=== PATIENT | male | born 1940 | race Caucasian/White ===

== ENCOUNTER 2017-04-28 14:09 | Observation (INO) | payer MEDICARE ==
--- NOTE | 2017-04-28 14:39 | ERPHSYRPT ---
- History of Present Illness Time Seen by Provider: 04/28/17 14:28 Source: patient Exam Limitations: no limitations Patient Subjective Stated Complaint: PT STATES HE WOKE THIS MORNING AND HAD BREAKFAST WHEN HE SUDDENLY FELL TO THE FLOOR, REPORTS HE DID NOT LOOSE CONSCIOUSNESS, HE JUST LAID THERE ON THE FLOOR. STATES WHEN HIS HOME HEALTH NURSE ARRIVED SHE CALLED 911. DENIES STRIKING HIS HEAD DURING THE FALL. ESTIMATES HE WAS DOWN ON THE FLOOR APPROX 30 MINS. REPORTS HE LIVES ALONE. Triage Nursing Assessment: PT IS AOX3, PUPILS PERRL, HAND PRIVATE DUTY NURSE ARE STRONG AND EQUAL, PT MOVES ALL EXTREMITIES FREELY, RESPS ARE EASY AND NON LABORED, LUNG SOUNDS ARE CLEAR THROUGHOUT ALL SINGH, RADIAL PULSES ARE STRONG AND EQUAL, BOWEL SOUNDS ARE PRESENT AND NORMOACTIVE X4. NO OBVIOUS INJURIES NOTED, SKIN IS INTACT. PT DENIES ANY ACUTE PAIN. REPORTS CHRONIC PAIN TO THE BILAT FEET. Physician History: This 77-year-old white female with history of hypercholesterolemia, diabetes, high blood pressure, prostate problems, arthritis Patient is brought by medics. Patient states she chronically has a hard time walking he states he's been walking with shuffling gait for years He states that he was in [facility] for the same last week. He states that he was at home shuffling around and fell. He denies any loss of consciousness did not hit his head. He states his home health care called via medics. He states that his walking has not changed. He initially said for months and then said for years she is not having problems moving his extremities. Past medical history includes hypercholesterolemia, chronic foot pain, diabetes , high blood pressure, prostate problems, arthritis, gout, sleep disorder. Timing/Duration: other (chronic problems walking, fell to the floor this morning ) Severity: moderate Modifying Factors: Improves With: nothing Associated Symptoms: weakness, other (problems walking for years states walks with shuffling gait), No nausea, No vomiting, No abdominal pain, No shortness of breath, No heartburn, No diaphoresis, No cough, No chills, No chest pain, No fever, No headaches, No loss of appetite, No malaise, No rash, No syncope, No seizure Home Medications: Allopurinol 100 mg [Zyloprim 100 mg] 100 mg PO DAILY 04/28/17 [History] Atorvastatin Calcium [Lipitor 40Mg] 40 mg PO DAILY 04/28/17 [History] Clopidogrel Bisulfate 75 mg [PLAVIX 75 MG Tablet] 75 mg PO DAILY 04/28/17 [History] Fenofibrate [Lipofen] 145 mg PO HS 04/28/17 [History] Glipizide 2.5 mg [Glucotrol Xl 2.5 MG] 2.5 mg PO DAILY 04/28/17 [History] Latanoprost [Xalatan] 1 ml OP HS 04/28/17 [History] Lisinopril [Zestril] 30 mg PO DAILY 04/28/17 [History] Pregabalin [Lyrica 100Mg] 100 mg PO TID 04/28/17 [History] Sitagliptin Phosphate 50 MG [Januvia 50 MG] 100 mg PO DAILY 04/28/17 [ History] Tamsulosin HCl 0.4 mg [Flomax 0.4 MG] 0.4 mg PO BID 04/28/17 [History] Tramadol HCl 50 mg [Ultram 50 mg] 50 mg PO Q4H PRN PRN 04/28/17 [History] Zolpidem Tartrate 10 mg PO HS 04/28/17 [History] Hx Tetanus, Diphtheria Vaccination/Date Given: Yes Hx Influenza Vaccination/Date Given: Yes Hx Pneumococcal Vaccination/Date Given: Yes Immunizations Up to Date: Yes - Review of Systems Constitutional: No Fever, No Chills Eyes: No Symptoms Ears, Nose, & Throat: No Symptoms Respiratory: No Cough, No Dyspnea Cardiac: No Chest Pain, No Edema, No Syncope Abdominal/Gastrointestinal: No Abdominal Pain, No Nausea, No Vomiting, No Diarrhea Genitourinary Symptoms: No Dysuria Musculoskeletal: Fall (fell denies injury), Other (chronic feet pain) Skin: No Symptoms, No Rash Neurological: Gait Changes (patient states shuffling and trouble walking for years) Psychological: No Symptoms Endocrine: No Symptoms All Other Systems: Reviewed and Negative - Past Medical History Pertinent Past Medical History: Yes Cardiac History: High Cholesterol, Hypertension Endocrine Medical History: Diabetes Type II Musculoskeletal History: Arthritis Male Reproductive Disorders: Prostate Problems Other Medical History: GOUT, SLEEP DISORDER - Past Surgical History Past Surgical History: No - Social History Smoking Status: Never smoker Drug Use: none Patient Lives Alone: Yes - Nursing Vital Signs Nursing Vital Signs: Initial Vital Signs Temperature 98.3 F 04/28/17 14:11 Pulse Rate 83 04/28/17 14:11 Respiratory Rate 20 04/28/17 14:11 Blood Pressure 144/98 04/28/17 14:11 Pain Scale Pain Intensity 10 - Physical Exam General Appearance: no apparent distress, alert Eye Exam: PERRL/EOMI (review), eyes nml inspection Ears, Nose, Throat Exam: normal ENT inspection, TMs normal, pharynx normal, moist mucous membranes Neck Exam: normal inspection, non-tender, supple, full range of motion Respiratory Exam: normal breath sounds, lungs clear, No respiratory distress Cardiovascular Exam: regular rate/rhythm, normal heart sounds, normal peripheral pulses Gastrointestinal/Abdomen Exam: soft, normal bowel sounds, No tenderness, No mass Back Exam: normal inspection, normal range of motion, No CVA tenderness, No vertebral tenderness Extremity Exam: normal inspection, normal range of motion, pelvis stable Neurologic Exam: alert, oriented x 3, cooperative, pharmacy intake coordinator II-XII nml as tested, normal mood/affect, nml cerebellar function, nml station & gait, sensation nml, No motor deficits Skin Exam: normal color, warm, dry, No rash Lymphatic Exam: No adenopathy SpO2 Interpretation: normal (95%) - Course Nursing assessment & vital signs reviewed: Yes EKG Interpreted by Me: RATE (76 bpm), Other (EKG: Sinus rhythm 76 bpm axisQI/ SIII pattern, right bundle branch block left anterior fascicular block no acute ST or T wave changes noted, no old EKG for comparison) - CT Exams Head CT Interpretation: Discussed w/radiologist (head CT without contrast: Impression : 1. New finding for small old left basal ganglia infarct. 2. Stable atrophy , degenerative micro-ischemia, and small right periventricular infarct. 3. Right sphenoid sinus polyp) Ordered Tests: Active Orders 24 hr Category Date Time Status EKG-ER Only STAT Care 04/28/17 14:33 Active IV Insertion STAT Care 04/28/17 14:33 Active HEAD WITHOUT CONTRAST [CT] Stat Exams 04/28/17 14:47 Completed CBC W DIFF Stat Lab 04/28/17 14:15 Completed CMP Stat Lab 04/28/17 14:15 Completed TROPONIN Q3H Lab 04/28/17 14:15 Completed TROPONIN Q3H Lab 04/28/17 18:00 Ordered TROPONIN Q3H Lab 04/28/17 21:00 Ordered TROPONIN Q3H Lab 04/29/17 00:00 Ordered TROPONIN Q3H Lab 04/29/17 03:00 Ordered Medication Summary Generic Name Dose Route Start Last Admin Trade Name Traq PRN Reason Stop Dose Admin Sodium Chloride 1,000 mls @ 100 mls/hr 04/28/17 14:45 04/28/17 14:49 Sodium Chloride 0.9% 1000 Ml IV 05/28/17 14:44 100 mls/hr .Q10H CHERY Administration Lab/Rad Data: Laboratory Result Diagrams 04/28/17 14:15 04/28/17 14:15 Laboratory Results 04/28/17 04/28/17 04/28/17 Range/Units 14:15 14:15 14:15 WBC 9.5 (4.0-10.5) K/mm3 RBC 4.27 (4.1-5.6) M/mm3 Hgb 11.7 L (12.5-18.0) gm/dl Hct 36.8 L (42-50) % MCV 86.2 (78-100) fl MCH 27.4 (26-32) pg MCHC 31.8 L (32-36) g/dl RDW 13.8 (11.5-14.0) % Plt Count 205 (150-450) K/mm3 MPV 11.5 H (6-9.5) fl Gran % 77.4 H (36.0-66.0) % Lymphocytes % 11.6 L (24.0-44.0) % Monocytes % 8.2 (0.0-12.0) % Eosinophils % 2.6 (0.00-5.0) % Basophils % 0.2 (0.0-0.4) % Basophils # 0.02 (0-0.4) Sodium 139 (136-145) mEq/L Potassium 5.2 H (3.5-5.1) mEq/L Chloride 105 (98-107) mEq/L Carbon Dioxide 23.5 (21-32) mEq/L Anion Gap 15.6 H (5-15) MEQ/L BUN 40 H (9-20) mg/dL Creatinine 2.40 H (0.55-1.30) mg/dl Estimated GFR 28 ML/MIN Glucose 161 H (70-110) MG/DL Calcium 9.4 (8.5-10.1) mg/dL Total Bilirubin 0.50 (0.2-1.0) mg/dL AST 19 (15-37) U/L ALT 18 (12-78) U/L Alkaline Phosphatase 34 L (46-116) U/L Troponin I < 0.017 (0.000-0.056) ng/ml Serum Total Protein 7.6 (6.4-8.2) gm/dL Albumin 3.5 (3.4-5.0) g/dL - Progress Progress: improved Progress Note: 04/28/17 15:54 This is a 77-year-old white female with history of diabetes high blood pressure hypercholesterolemia and gout. Who has a chronic gait disturbance he was apparently admitted to [facility] fall recently last week he had had a CT of the lumbar spine which showed a large calcified disc fragment extending significantly into the left neural foramen causing significant left foraminal compromise there were no other neural compromise and no acute findings were noted patient was apparently at home today and that was noted by his home health care nurse to fall to the floor patient states his legs just gave out on patient to arrives he states that he did not hit his head he is moving all the extremities extremities Head CT today shows new finding for a small old left basal ganglia infarct, stable atrophy with degenerative micro-ischemia a small right periventricular infarct also a right sphenoid sinus polyp. Patient's EKG remarkable for sinus rhythm first degree AV block right bundle branch block left anterior fascicular block axisQI/SIII pattern Patient's vitals are stable patient does show dehydration on chemistry with a BUN of 40 creatinine of 2.4 potassium was mildly elevated at 5.2 patient's CBC is stable troponin is within normal limits I've discussed the case with Dr. Redding who is chemical operations specialist for Dr. doe he states that he is reviewed the patient's case and that the patient has been confused at home with pills laying around. Will go ahead and admit the patient diagnoses 1 confusion to gait disturbance 3 dehydration. Will begin IV normal saline Will continue vitals . - Departure Time of Disposition: 15:58 Departure Disposition: Observation (Dr Doe) Clinical Impression: Gait disturbance, Dehydration, Confusion Condition: Fair Critical Care Time: No Referrals: COLTEN DOE [Primary Care Provider] -
[2017-04-28] MEDS ORDERED: Sodium Chloride 0.9% 1000 ML 1,000 ML IV SCH (14:45)
[2017-04-28] MEDS ORDERED: Sodium Chloride 0.9% 1000 ML 1,000 ML ONE (14:46)
[2017-04-28 14:53] LABS: BASOPHIL % 0.2 % (0.0-0.4); Eosinophil % 2.6 % (0.00-5.0); Granulocytes % 77.4 % (36.0-66.0); Lymphocytes % 11.6 % (24.0-44.0); Mean Cell Volume 86.2 fl (78-100); Mean Corpuscular Hemoglobin 27.4 pg (26-32); Mean Platelet Volume 11.5 fl (6-9.5); Monocytes % 8.2 % (0.0-12.0); Platelet Count 205 K/mm3 (150-450); Red Blood Count 4.27 M/mm3 (4.1-5.6); Red Cell Distribution Width 13.8 % (11.5-14.0); White Blood Count 9.5 K/mm3 (4.0-10.5)
[2017-04-28 15:03] LABS: ALBUMIN 3.5 g/dL (3.4-5.0); ANION GAP 15.6 MEQ/L (5-15); BILIRUBIN,TOTAL 0.5 mg/dL (0.2-1.0); Carbon Dioxide 23.5 mEq/L (21-32); Potassium 5.2 mEq/L (3.5-5.1); Total Protein 7.6 gm/dL (6.4-8.2)
--- NOTE | 2017-04-28 15:37 | XRAY ---
Indication: Weakness. Unsteady gait. Multiple contiguous axial images obtained through the head without contrast. Comparison: June 07, 2011. Again age-appropriate global atrophy, benign bilateral basal ganglia calcifications, mild periventricular degenerative micro-ischemia bilaterally, and small old right mid periventricular infarct. New 1.5 cm left basal ganglia remote appearing infarct. No acute intracranial hemorrhage, abnormal extra-axial fluid collection, or mass effect. Fourth ventricle is midline without hydrocephalus. Bony calvarium intact. 1 cm right sphenoid sinus polyp. Remaining visualized paranasal sinuses and mastoid air cells are clear. Impression: 1. New finding for small old left basal ganglia infarct. 2. Stable atrophy, degenerative micro-ischemia, and small right periventricular infarct. 3. Right sphenoid sinus polyp. CTDI 70.10
[2017-04-28] MEDS ORDERED: NovoLOG Insulin SQ PRN (16:33)
[2017-04-28] MEDS ORDERED: Zestril 10 MG PO SCH (18:00)
[2017-04-28] MEDS: ZOCOR 20MG PO SCH (18:26)
[2017-04-28] MEDS: ZYLOPRIM 100 MG PO SCH (18:26)
[2017-04-28] MEDS: PLAVIX 75 MG Tablet PO SCH (18:26)
[2017-04-28] MEDS: LYRICA 100MG PO SCH ×2 (18:26→21:30)
[2017-04-28] MEDS: Ambien 10 MG PO SCH (21:23)
[2017-04-28] MEDS: ULTRAM 50 MG PO PRN (21:24)
[2017-04-28] MEDS: Tricor 145 MG PO SCH (21:24)
[2017-04-28] MEDS: Xalatan OP SCH (21:24)
[2017-04-28] MEDS: Flomax 0.4 MG PO SCH (21:24)
[2017-04-28] MEDS ORDERED: FENOFIBRATE 145 MG PO SCH (22:00)
[2017-04-29] MEDS: Sodium Chloride 0.9% 1000 ML 1,000 ML IV SCH ×2 (00:38→10:06)
[2017-04-29] MEDS: ULTRAM 50 MG PO PRN (04:36)
[2017-04-29 05:48] LABS: Mean Cell Volume 87.3 fl (78-100); Mean Platelet Volume 11.1 fl (6-9.5); Platelet Count 187 K/mm3 (150-450); Red Blood Count 4.02 M/mm3 (4.1-5.6); Red Cell Distribution Width 13.8 % (11.5-14.0); White Blood Count 7.5 K/mm3 (4.0-10.5)
[2017-04-29 05:58] LABS: Mean Corpuscular Hemoglobin 27.3 pg (26-32)
[2017-04-29 06:07] LABS: ALBUMIN 3.1 g/dL (3.4-5.0); ANION GAP 12.7 MEQ/L (5-15); BILIRUBIN,TOTAL 0.4 mg/dL (0.2-1.0); Carbon Dioxide 26.2 mEq/L (21-32); Potassium 5.3 mEq/L (3.5-5.1); Total Protein 6.7 gm/dL (6.4-8.2)
[2017-04-29 06:17] LABS: Platelet Estimate NORMAL (NORMAL); Total Cells Counted 100
[2017-04-29] MEDS ORDERED: Apresoline 25 MG TABLET PO PRN (08:58)
[2017-04-29] MEDS: NORVASC 5 MG PO SCH (09:54)
[2017-04-29] MEDS: LYRICA 100MG PO SCH ×3 (09:54→21:35)
[2017-04-29] MEDS: Flomax 0.4 MG PO SCH ×2 (09:54→21:35)
[2017-04-29] MEDS: ZOCOR 20MG PO SCH (09:54)
[2017-04-29] MEDS: ZYLOPRIM 100 MG PO SCH (09:55)
[2017-04-29] MEDS: TYLENOL 325 MG PO SCH ×3 (09:55→22:23)
[2017-04-29] MEDS: PLAVIX 75 MG Tablet PO SCH (09:55)
[2017-04-29] MEDS ORDERED: NON-FORMULARY ITEM (Lisinopril [Zestril] 30 MG) PO SCH (10:00)
[2017-04-29] MEDS ORDERED: LIPITOR 40MG PO SCH (10:00)
--- NOTE | 2017-04-29 10:27 | XRAY ---
Indication: CKD. Two-dimensional renal sonogram performed. Comparison: None Both kidneys normal in reniform shape with normal color perfusion. The right kidney measures 10.5 x 5.0 x 5.4 cm and the left measures 11.5 x 4.8 x 5.3 cm. No suspicious renal mass, hydronephrosis, or perinephric fluid. Cortical medullary differentiation preserved without cortical thinning. Images of the urinary bladder demonstrates slightly enlarged heterogeneous prostate gland measuring 5.3 x 3.8 cm impressing on the base of the bladder. There is a 2.1 x 2.3 x 2.7 cm midline echogenic mass near the base of the bladder similar in echogenicity to the enlarged prostate gland either related to prostate gland or bladder wall mass. Impression: 1. Enlarged prostate gland. 2. Echogenic prostate mass versus urinary bladder wall mass as detailed. CT urogram with good opacification/distention of the urinary bladder or direct cystoscopy may yield further information. 3. Negative renal sonogram.
--- NOTE | 2017-04-29 10:56 | HP ---
HISTORY OF PRESENT ILLNESS: He is a 77 year-old patient of mine with a history of CVA in the past as well as shuffling gait, diabetes, chronic kidney disease stage IV. He was recently at [facility] overnight for low back pain. The patient reports that he was discharged to home and then fell yesterday in his kitchen. He reports that he had just finished eating and had pills in his mouth but no water to take them with and had to crawl into the living room to get a drink of water. He states his legs gave out. He denies any lightheadedness. No dizziness. No loss of consciousness. He does not think he hit his head. When asked about the scrape on the top of his head he stated he was unsure how that happened. He reports he has a cane at home and a walker that was ordered when he was at [facility] but he has not picked it up yet at [facility]. He reports that his home health nurse came to see him yesterday and she called us concerned about pills being all over and him not being able to walk. The patient has stated to my nurse since she talked to him that he plans to just crawl around his house. The patient does report he has two sons in the area but he lives alone. He reports he has had pain in his feet, lower back and knees and this is why he has been unable to walk. He reports his blood glucose has been okay at home. REVIEW OF SYSTEMS: He denies chest pain. No shortness of breath. No abdominal pain. No constipation. No diarrhea. No lower extremity edema. No headache. PAST MEDICAL HISTORY: History of CVA in 2013, diabetes mellitus type 2, chronic kidney disease stage IV last year April and he refused to follow up with a gas pump attendant. Hypertension, hyperlipidemia, gout. PAST SURGICAL HISTORY: Surgery on his right knee in the due to dislocation. Hemorrhoid surgery 2013. Colonoscopy 2013. MEDICATIONS: Allopurinol 100 mg p.o. daily, Atorvastatin 40 mg p.o. daily, Plavix 75 mg p.o. daily, Fenofibrate 145 mg p.o. q.h.s., Glipizide 2.5 mg p.o. daily, Lantanaprost for glaucoma, lisinopril 30 mg daily, Lyrica 100 mg t.i.d., Januvia 100 mg daily, Tamsulosin 0.4 mg b.i.d., tramadol 5 mg p.o. every four hours as needed, Ambien 10 mg p.o. h.s. I have it in his clinic chart that we had changed his Januvia to 25 mg daily. However it appears that he got 100 mg filled. ALLERGIES: NKDA. SOCIAL HISTORY: He denies any alcohol. He does not smoke. He lives at home by himself. He has four children. FAMILY HISTORY: Noncontributory. PHYSICAL EXAMINATION: VITAL SIGNS: Temperature current 97.9F, temperature max 98.3F, heart rate 60 to 83, respiratory rate 18 to 20, blood pressure 144 to 183 over 77 to 98, weight 78.2 kg. Oxygen saturation 93 to 96% on room air. GENERAL: The patient is lying in bed in no acute distress. He is alert and oriented x3. He cannot name the orthotic aide but states that he knows it is not Obama. CVS: He has a regular rate and rhythm. No murmurs, gallops or rubs. CHEST: Clear to auscultation bilaterally. No crackles or wheezes. ABDOMEN: Soft, nontender, nondistended with normal bowel sounds. EXTREMITIES: No clubbing, cyanosis or edema. Strength is 5/5 in hands and arms. Cranial nerves II-XII intact. LABORATORY DATA AND TESTS: Hemoglobin 11. Potassium 5.3, creatinine 2.5. Serial troponins have been negative. Albumin 3.1. CT revealed new finding of an old small left basal ganglia infarct, stable atrophy, right sphenoid sinus polyp. Please see the radiologist's dictation for full report. EKG revealed first degree block right bundle branch block, prolonged QT interval. ASSESSMENT AND PLAN: 1) FALL. I will ask physical therapy to consult. I have asked for discharge planning so we can make sure that he is safe at home. He has home health care already but was found crawling around on his floor. 2) CHRONIC KIDNEY DISEASE STAGE IV: He states today he will be willing to see a gas pump attendant. I will ask for a gas pump attendant to see him. I have ordered ultrasound of his kidneys as well as UA. I plan to repeat his BMP tomorrow. 3) HYPERKALEMIA: Most likely due to his chronic kidney disease will continue to monitor this. I have stopped his lisinopril and changed his antihypertensive to amlodipine. 4) HYPERTENSION: Amlodipine 10 mg p.o. daily. Hydralazine ordered as needed. 5) HISTORY OF CVA: Will continue with the Plavix. 6) HISTORY OF GOUT: Will check uric acid level. 7) OSTEOARTHRITIS: This is most likely resulting in pain in his lower extremities. I have scheduled Tylenol 650 mg every six hours. I also have tramadol ordered as needed this was recently added during his [facility] hospitalization. 8) CODE STATUS: The patient states that he does not want to have chest compressions or be placed on a ventilator if something would happen suddenly and so I signed his Code Status in his chart. 9) DEEP VENOUS THROMBOSIS PROPHYLAXIS: Will use [facility].
--- NOTE | 2017-04-29 12:53 | XRAY ---
Indication: [facility] placement. Comparison: June 07, 2011. PA/lateral chest remains hyperinflated and clear with a few incidental tiny calcified granulomas. Heart is not enlarged. Vascularity normal. Bony thorax intact again with mild osteopenia and degenerative changes. Impression: Stable nonacute hyperinflated chest with chronic features.
[2017-04-29 16:33] LABS: Collection Type CCMS
[2017-04-29 16:35] LABS: Bilirubin NEGATIVE (NEGATIVE); Blood NEGATIVE Ery/ul (0-5); COMPLETE URINE MICROSCOPIC? YES; Glucose 250 mg/dL (NEGATIVE); Leukocyte Esterase NEGATIVE (NEGATIVE)
[2017-04-29 16:36] LABS: WBC 0-2 /HPF (0-5)
[2017-04-29] MEDS: Xalatan OP SCH (21:35)
[2017-04-29] MEDS: Ambien 10 MG PO SCH (21:35)
[2017-04-29] MEDS: Tricor 145 MG PO SCH (21:36)
[2017-04-30] MEDS: Sodium Chloride 0.9% 1000 ML 1,000 ML IV SCH (00:25)
[2017-04-30] MEDS: TYLENOL 325 MG PO SCH ×2 (03:00→08:41)
[2017-04-30 03:10] LABS: Collection Type CLEAN CATCH
[2017-04-30 03:11] LABS: Bilirubin NEGATIVE (NEGATIVE); Blood NEGATIVE Ery/ul (0-5); Glucose 500 mg/dL (NEGATIVE); Leukocyte Esterase NEGATIVE (NEGATIVE)
[2017-04-30 03:15] LABS: COMPLETE URINE MICROSCOPIC? YES
[2017-04-30 06:57] LABS: ALBUMIN 2.9 g/dL (3.4-5.0); ANION GAP 13.5 MEQ/L (5-15); BILIRUBIN,TOTAL 0.3 mg/dL (0.2-1.0); Carbon Dioxide 23.9 mEq/L (21-32); PHOSPHOROUS 3.6 mg/dL (2.6-4.7); Potassium 4.6 mEq/L (3.5-5.1); Total Protein 6.5 gm/dL (6.4-8.2)
[2017-04-30] MEDS: Flomax 0.4 MG PO SCH (08:41)
[2017-04-30] MEDS: NORVASC 5 MG PO SCH (08:41)
[2017-04-30] MEDS: LYRICA 100MG PO SCH (08:41)
[2017-04-30] MEDS: PLAVIX 75 MG Tablet PO SCH (08:41)
[2017-04-30] MEDS: ZYLOPRIM 100 MG PO SCH (08:41)
[2017-04-30] MEDS: ZOCOR 20MG PO SCH (08:41)
--- NOTE | 2017-04-30 08:44 | CONS ---
CONSULT DATE: 04/29/17 REASON FOR CONSULTATION: Chronic kidney disease stage IV. HISTORY OF PRESENT ILLNESS: Mr. Hodgson is a pleasant 77 y/o male, with significant history of a stroke in the past, diabetes for 17 years, hypertension for 5 years, admitted for history of fall. He was feeling weak and tired. His leg was giving away. 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 He denies any nausea, vomiting, headache, chest pain, shortness of breath, swelling, rash, fever, chills, constipation, diarrhea, dizziness, lightheadedness, and focal weakness. REVIEW OF SYSTEMS: All other 12 Review of Systems were negative except in HPI. PAST MEDICAL HISTORY: History of a stroke in 2013, diabetes type 2, chronic kidney disease stage IV, hypertension, dyslipidemia, and gout. PAST SURGICAL HISTORY: Surgery on his right knee in due to dislocation, right hand surgery, and colonoscopy. CURRENT MEDICATIONS: Tylenol, allopurinol 100 mg daily, amlodipine 10 mg daily, Plavix 75 mg daily, Fenofibrate 145 mg daily, simvastatin 40 mg tablet daily, Tamsulosin 0.4 mg PO bid, zolpidem 10 mg PO q HS, Lyrica 100 mg tablet daily, normal saline 100 ml/h. FAMILY HISTORY: No one has kidney disease. Diabetes runs in family. SOCIAL HISTORY: He used to live by himself. Denies smoking, alcohol, or use of any illicit drug. PHYSICAL EXAMINATION: Temperature 97.8, pulse 58, respiratory rate 17, BP 173/86. GENERAL: Alert, oriented, not in distress. HEENT: Oral mucosa moist. NECK: Supple. CHEST: Chest was clear on auscultation. HEART: S1 and S2 normal. No rub. ABDOMEN: Soft, nontender. Bowel sounds present. EXTREMITIES: No edema. No clubbing. No cyanosis. MONUMENT SETTER: No focal deficit. LABORATORY DATA: Uric acid 3.4, WBC 7.5, Hgb 11, BUN 33, creatinine 2.52, sodium 141, potassium 5.3, albumin 3.1. ASSESSMENT AND PLAN: 1. CHRONIC KIDNEY DISEASE STAGE IV MOST LIKELY SECONDARY TO DIABETIC NEPHROPATHY PLUS HYPERTENSIVE NEPHROSCLEROSIS PLUS AGING NEPHROSCLEROSIS. Will quantify urine proteinuria as well as will do urinalysis. At this time, agree with holding lisinopril. If he has significant proteinuria, will consider starting lisinopril. For hyperkalemia, we can use Veltassa. 2. HYPERKALEMIA. Agree with holding lisinopril. If his serum potassium continues to remain high, start Veltassa once a day. 3. BONE MINERAL DISEASE. Will check PTH, phosphorus, and vitamin D level. 4. ANEMIA. He has mild anemia. Most likely anemia of chronic disease. Will check iron saturations, ferritin, and B12 level. 5. HISTORY OF CEREBROVASCULAR ACCIDENT ON PLAVIX PLUS SIMVASTATIN. 6. GOUT. Uric acid well controlled on allopurinol. Thank you, Dr. Gomez, for giving me the opportunity to participate in the care of this patient. I will follow this patient along with you.
[2017-04-30] MEDS: ULTRAM 50 MG PO PRN ×2 (08:47→13:06)
--- NOTE | 2017-04-30 09:00 | PCM.DCORD ---
- Discharge Discharge Date: 04/30/17 Disposition: DC TO [facility] Condition: Fair Prescriptions: New Ferrous Sulfate 325 mg [Feosol 325 mg] 325 mg PO DAILY #0 tablet Folic Acid 1 mg [Folate 1 mg] 1 mg PO DAILY tablet Amlodipine Besylate 5 mg [Norvasc 5 mg] 10 mg PO QAM tablet Acetaminophen 325 mg [Tylenol 325 mg] 650 mg PO Q6H tablet Continue Pregabalin [Lyrica 100Mg] 100 mg PO TID Latanoprost [Xalatan] 1 ml OP HS Atorvastatin Calcium [Lipitor 40Mg] 40 mg PO DAILY Tamsulosin HCl 0.4 mg [Flomax 0.4 MG] 0.4 mg PO BID Glipizide 2.5 mg [Glucotrol Xl 2.5 MG] 2.5 mg PO DAILY Allopurinol 100 mg [Zyloprim 100 mg] 100 mg PO DAILY Clopidogrel Bisulfate 75 mg [PLAVIX 75 MG Tablet] 75 mg PO DAILY Fenofibrate [Lipofen] 145 mg PO HS Tramadol HCl 50 mg [Ultram 50 mg] 50 mg PO Q4H PRN PRN #20 tablet PRN Reason: Pain Zolpidem Tartrate 10 mg PO HS #30 tablet Discontinued Sitagliptin Phosphate 50 MG [Januvia 50 MG] 100 mg PO DAILY Lisinopril [Zestril] 30 mg PO DAILY Additional Instructions: PT/OT to evaluate and treat. Accu checks before breakfast and before supper. Follow up with: JOE DENIS NP [ALLIED HEALTH PROFESSION STAFF] - 05/14/17 1:00 pm ([facility]) COLTEN DOE [Primary Care Provider] - SANDRA LINARES MD [CONSULTING PHYSICIAN] - 1 Week
[2017-04-30] MEDS ORDERED: FOLATE 1 MG PO SCH (10:00)
[2017-04-30] MEDS ORDERED: FEOSOL 325 MG PO SCH (10:00)
[2017-04-30 11:25] VITALS: BP 152/73; PULSE 66; O2SAT 92
[2017-05-01 10:04] LABS: Vitamin D 25 Hydroxy 18 ng/mL (30-80)
--- NOTE | 2017-05-01 10:34 | DS ---
DISCHARGE DIAGNOSES: 1) FALL. 2) CHRONIC KIDNEY DISEASE STAGE IV. 3) HYPERKALEMIA. 4) HYPERTENSION. 5) HISTORY OF CVA. 6) HISTORY OF GOUT. 7) OSTEOARTHRITIS. DISCHARGE PHYSICAL EXAMINATION: VITALS: Temperature current 98.3F, temperature max 98.6F, heart rate 57 to 66, respiratory rate 18 to 20, blood pressure 119 to 152 over 70 to 76. Oxygen saturation 92 to 98% on room air. GENERAL: The patient was lying in bed a pleasant talkative man in no acute distress. CVS: He had a regular rate and rhythm. No murmurs, gallops or rubs. CHEST: Clear to auscultation bilaterally. No crackles or wheezes. ABDOMEN: Soft, nontender, nondistended with normal bowel sounds. EXTREMITIES: No clubbing, cyanosis or edema. He has an abrasion on his left knee and abrasion on top of his scalp. SKIN: Warm, dry and intact. HOSPITAL COURSE: 1) FALL: He had PT consult as nurses noted that he was needing assist of two. He was agreeable to going to [facility] for rehabilitation and this was arranged and he was discharged to [facility]. He also had a head CT that revealed a new finding for small old left basal ganglion infarct otherwise stable atrophy. Please see the radiologist's dictation for the full report. 2) CHRONIC KIDNEY DISEASE STAGE IV: I stopped his Januvia as well as his lisinopril and medical insurance claims processor, Dr. Liu, saw him and I appreciate his input and he will follow up with him as an outpatient. The patient had an ultrasound of his kidneys and they revealed a possible mass in his bladder. 3) HYPERKALEMIA: Potassium was normal at the time of discharge. 4) HYPERTENSION: He was started on amlodipine 10 mg p.o. daily and hydralazine was ordered as needed in the hospital and he just needed one dose of this. Again, his lisinopril was stopped. 5) HISTORY OF CVA: Will continue on Plavix. 6) HISTORY OF GOUT: His uric acid level was actually a little bit low, will continue his Allopurinol. 7) OSTEOARTHRITIS: I have ordered Tylenol as needed. The patient refused this a couple of times stating that he should not take it. However, he does not have any history of liver disease so I encouraged him to take this. He also has tramadol ordered as needed for pain. 8) POSSIBLE MASS ON HIS BLADDER: We did not have a urologist available here at the hospital and so he was set up with outpatient urologist to follow up on this. Ultrasound report revealed an echogenic prostate mass versus urinary bladder wall mass. Please see the radiologist dictation for the full report on this. 9) ANEMIA: His iron levels were checked and were slightly low. I started him on ferrous sulfate before his discharge. DISCHARGE MEDICATIONS: Ferrous sulfate 325 mg p.o. daily, folic acid 1 mg p.o. daily, amlodipine 10 mg p.o. q.a.m., Tylenol 650 mg p.o. every six hours, Lyrica 100 mg p.o. t.i.d., Latanoprost as directed, Atorvastatin 40 mg p.o. q.h.s., Tamsulosin 0.4 mg b.i.d., Glipizide 2.5 mg p.o. daily, Allopurinol 100 mg p.o. daily, Plavix 75 mg p.o. daily, Fenofibrate 145 mg p.o. q.h.s., tramadol 50 mg every four hours as needed #20 with no refills, Ambien 10 mg p.o. q.h.s. #30 with no refills. He was to stop the Januvia and lisinopril. PT and OT to evaluate and treat. Accu-Chek's before breakfast and before supper. He is to follow up with Melissa Morley on 05/14/2017 at 1300 hours for his urology follow up and Dr. Liu in one week, either myself or the doctor at [facility] in one week. DISPOSITION: The patient was discharged to [facility] in fair condition.
[2017-05-01 11:59] LABS: PTH INTACT 60 pg/mL (15-72)
[2017-05-05 19:53] LABS: 25_Hydroxyvitamin D2D3 22.7 ng/mL (30.0-80.0)
== END 2017-04-30 13:05 ==
LOC: ED 14:09 → MED SURG 16:16 → UNDODISOB 04-30 11:12
PROVIDERS: ADMIT Internal Medicine; ATTEND Internal Medicine
DX: I12.9 Hypertensive chronic kidney disease with stage 1 through stage 4 chronic kidney disease, or unspecified chronic kidney disease (principal); E11.22 Type 2 diabetes mellitus with diabetic chronic kidney disease; N18.4 Chronic kidney disease, stage 4 (severe); E11.21 Type 2 diabetes mellitus with diabetic nephropathy; E87.5 Hyperkalemia; Z86.73 Personal history of transient ischemic attack (TIA), and cerebral infarction without residual deficits; M10.9 Gout, unspecified; M19.90 Unspecified osteoarthritis, unspecified site; S00.01XA Abrasion of scalp, initial encounter; S80.212A Abrasion, left knee, initial encounter; W18.30XA Fall on same level, unspecified, initial encounter; E78.5 Hyperlipidemia, unspecified; E83.9 Disorder of mineral metabolism, unspecified; D64.9 Anemia, unspecified; N28.89 Other specified disorders of kidney and ureter; N32.89 Other specified disorders of bladder; Z79.899 Other long term (current) drug therapy
CPT/HCPCS: 36000; 36415; 70450; 71020; 76770; 80053; 81000; 81002; 82306; 82570; 82607; 82728; 82746; 82962; 83540; 83550; 83970; 84100; 84156; 84484; 84550; 85025; 93005; 93268; 96360; 99285; G0378; A9270-GY